=== PATIENT | male | born 1975 | race Caucasian/White ===

== ENCOUNTER 2017-06-23 20:28 | Emergency (ER) | payer BC ==
[~2017-06-23] VITALS: Ht 177.8 cm; Wt 90.4 kg
[~2017-06-23 20:28] MED LIST: CYCL-36 PO; DICL75 PO; SUBO8MIS SL
[2017-06-23 20:33] VITALS: BP 140/66; PULSE 81; RESP 12; TEMP 98.8; O2SAT 100
[2017-06-23] MEDS ORDERED: SODIUM CHLORIDE 0.9% FLUSH 10 ML FLUSH IV FLUSH PRN (21:00)
[2017-06-23] MEDS ORDERED: MORPHINE SULFATE 4 MG/ML INJ IV PUSH ONE (21:00)
[2017-06-23] MEDS ORDERED: ONDANSETRON HCL 4 MG/2 ML VIAL IVP ONE (21:00)
[2017-06-23] MEDS ORDERED: LIPI20TA PO (21:06)
[2017-06-23] MEDS ORDERED: LISI40TA PO (21:06)
[2017-06-23 21:10] VITALS: BP 143/58; PULSE 76; RESP 18; TEMP 98.7; O2SAT 98
--- NOTE | 2017-06-23 21:19 | PD ---
HPI Chief Complaint: Flank/Kidney Pain Time Seen by Provider: 20:44 Travel History International Travel<30 days: No Contact w/Intl Traveler<30days: No Traveled to known affect area: No History of Present Illness HPI 41-year-old male here for evaluation of left flank pain and nausea. The patient apparently was admitted to [facility] 2 days ago and was discharged today. Patient works in construction and apparently was sent home from work 3 days ago because of generalized weakness. The patient went home and slept until the next afternoon. He didn't feel well and presented to [facility] when he was admitted for acute renal failure. The patient reportedly was provided about 12 L of normal saline IV and was discharged today. He does not recall having any imaging performed while he was admitted. He denies urinary symptoms. Left flank pain is dull, radiates to his left lower quadrant, is moderate, is associated with nausea. No history of abdominal surgeries. No illicit drug use. PFSH Past Medical History Diminished Hearing: No Musculoskeletal: Yes (CHRONIC BACK PAIN) Past Surgical History Appendectomy: Yes Social History Alcohol Use: No Tobacco Use: Yes (1.5 PKS PER DAY) Substance Use: No (hx of, currently on Suboxone) Allergies-Medications (Allergen,Severity, Reaction): Coded Allergies: No Known Allergies (Verified , 06/23/17) Reported Meds & Prescriptions Reported Meds & Active Scripts Active Reported Lipitor (Atorvastatin Calcium) 20 Mg Tab 20 Mg PO HS Lisinopril 40 Mg Tab 40 Mg PO DAILY Review of Systems Except as stated in HPI: all other systems reviewed are Neg Physical Exam Narrative GENERAL: Well-developed, well-nourished, no apparent distress. SKIN: Focused skin assessment warm/dry. No rash. HEAD: Atraumatic. Normocephalic. EYES: Pupils equal and round. No scleral icterus. No injection or drainage. ENT: Mucous membranes pink and dry. NECK: Trachea midline. No JVD. CARDIOVASCULAR: Regular rate and rhythm. RESPIRATORY: No accessory muscle use. Clear to auscultation. Breath sounds equal bilaterally. GASTROINTESTINAL: Abdomen soft, non-tender, nondistended. MUSCULOSKELETAL: No obvious deformities. No clubbing. No cyanosis. No edema. Moderate left CVA tenderness. No right CVA tenderness. No midline vertebral step-off or tenderness. NEUROLOGICAL: Awake and alert. No obvious cranial nerve deficits. Motor grossly within normal limits. Normal speech. PSYCHIATRIC: Appropriate mood and affect; insight and judgment normal. Data Data Last Documented VS Vital Signs Date Time Temp Pulse Resp B/P (MAP) Pulse Ox O2 Delivery O2 Flow Rate FiO2 06/23/17 23:03 75 18 124/56 (78) 97 Room Air 06/23/17 21:10 98.7 Orders Orders Complete Blood Count With Diff (06/23/17 20:49) Comprehensive Metabolic Panel (06/23/17 20:49) Urinalysis - C+S If Indicated (06/23/17 20:49) Ct Abd/Pel W/O Iv Contrast (06/23/17 20:49) Iv Access Insert/Monitor (06/23/17 20:49) Ecg Monitoring (06/23/17 20:49) Oximetry (06/23/17 20:49) Morphine Inj (Morphine Inj) (06/23/17 21:00) Ondansetron Inj (Zofran Inj) (06/23/17 21:00) Sodium Chloride 0.9% Flush (Ns Flush) (06/23/17 21:00) Creatine Kinase (Cpk) (06/23/17 20:49) Labs Laboratory Tests Test 06/23/17 21:03 06/23/17 21:41 Urine Color YELLOW Urine Turbidity CLEAR Urine pH 6.0 Urine Specific May 1.005 Urine Protein NEG mg/dL Urine Glucose (UA) 100 mg/dL Urine Ketones NEG mg/dL Urine Occult Blood SMALL Urine Nitrite NEG Urine Bilirubin NEG Urine Leukocyte Esterase NEG Urine Squamous Epithelial Cells 0-5 /hpf Microscopic Urinalysis Comment CULT NOT INDICATED White Blood Count 11.9 TH/MM3 Red Blood Count 4.68 MIL/MM3 Hemoglobin 13.1 GM/DL Hematocrit 38.8 % Mean Corpuscular Volume 83.0 FL Mean Corpuscular Hemoglobin 28.1 PG Mean Corpuscular Hemoglobin Concent 33.8 % Red Cell Distribution Width 13.2 % Platelet Count 234 TH/MM3 Mean Platelet Volume 8.8 FL Neutrophils (%) (Auto) 69.2 % Lymphocytes (%) (Auto) 18.7 % Monocytes (%) (Auto) 6.3 % Eosinophils (%) (Auto) 2.7 % Basophils (%) (Auto) 3.1 % Neutrophils # (Auto) 8.3 TH/MM3 Lymphocytes # (Auto) 2.2 TH/MM3 Monocytes # (Auto) 0.7 TH/MM3 Eosinophils # (Auto) 0.3 TH/MM3 Basophils # (Auto) 0.4 TH/MM3 CBC Comment DIFF FINAL Differential Comment Blood Urea Nitrogen 14 MG/DL Creatinine 0.89 MG/DL Random Glucose 113 MG/DL Total Protein 7.0 GM/DL Albumin 3.6 GM/DL Calcium Level 9.0 MG/DL Alkaline Phosphatase 61 U/L Aspartate Amino Transf (AST/SGOT) 20 U/L Alanine Aminotransferase (ALT/SGPT) 24 U/L Total Bilirubin 0.2 MG/DL Sodium Level 140 MEQ/L Potassium Level 4.2 MEQ/L Chloride Level 106 MEQ/L Carbon Dioxide Level 28.3 MEQ/L Anion Gap 6 MEQ/L Estimat Glomerular Filtration Rate 94 ML/MIN Total Creatine Kinase 145 U/L MDM Medical Decision Making Medical Screen Exam Complete: Yes Emergency Medical Condition: Yes Medical Record Reviewed: Yes Differential Diagnosis Acute renal failure, rhabdomyolysis, nephrolithiasis/ureterolithiasis, UTI, pyelonephritis, urinary obstruction Narrative Course Initial vital signs show heart rate 81, blood pressure 140/66, pulse ox 100% on room air, oral temp of 98.8F. CBC shows WBC 11.9, hemoglobin 13.1, hematocrit 30.8, platelets 234. CMP is unremarkable. Specifically BUN is 14, creatinine is 0.89, GFR is 94. UA shows 100 glucose, small occult blood. CT abdomen pelvis: CONCLUSION: 1. No acute obstructive uropathy. 2. Mildly prominent prostate. 3. Bilateral inguinal hernias containing only fat. Patient was made aware of all findings and was provided a copy of his CT report and all lab results. He is resting comfortably. At this point I believe he is stable for discharge home with outpatient follow-up with a urologist this week. He was told that he had protein in his urine on physical exam a couple months ago and was advised to follow-up with a urologist at that time. He was informed on when to return to the emergency department. He verbalizes understanding and agreement with plan. Diagnosis Primary Impression: Left flank pain Additional Impressions: Microscopic hematuria Glucosuria Referrals: Ronal Vick MD 3 days Urologist Primary Care Physician 3 days Additional Instructions: Follow-up with a primary care physician this week. Follow-up with urologist Dr. Vick or a urologist of your choice this week. Return to the emergency department for worsening symptoms or any other concerns. Disposition: 01 DISCHARGE HOME Condition: Stable Roberto Auguste MD Jun 23, 2017 21:19
--- NOTE | 2017-06-23 21:39 | RADRPT ---
EXAM DATE/TIME: 06/23/2017 21:07 [place] COMPARISON: No previous studies available for comparison. INDICATIONS : Left flank pain. Nausea. ORAL CONTRAST: No oral contrast ingested. RADIATION DOSE: 20.30 CTDIvol (mGy) MEDICAL HISTORY : None SURGICAL HISTORY : Appendectomy. ENCOUNTER: Initial ACUITY: 3 days PAIN SCALE: 7/10 LOCATION: Left flank TECHNIQUE: Volumetric scanning of the abdomen and pelvis was performed. Using automated exposure control and ad justment of the mA and/or kV according to patient size, radiation dose was kept as low as reasonably achievable to obtain optimal diagnostic quality images. DICOM format image data is available electro nically for review and comparison. FINDINGS: LOWER LUNGS: The visualized lower lungs are clear. LIVER: Homogeneous density without lesion. There is no dilation of the biliary tree. No calcified gallston es. SPLEEN: Normal size without lesion. PANCREAS: Within normal limits. KIDNEYS: Normal in size and shape. There is no mass, stone, or hydronephrosis. ADRENAL GLANDS: Within normal limits. VASCULAR: There is no aortic aneurysm. BOWEL/MESENTERY: The stomach, small bowel, and colon demonstrate no acute abnormality. There is no free intraperitone al air or fluid. ABDOMINAL WALL: Within normal limits. RETROPERITONEUM: There is no lymphadenopathy. BLADDER: No wall thickening or mass. REPRODUCTIVE: The prostate is mildly prominent. INGUINAL: There is no lymphadenopathy. Bilateral inguinal hernias containing only fat. MUSCULOSKELETAL: Within normal limits for patient age. There is a sclerotic focus within the right iliac bone consiste nt with probable bone island. CONCLUSION: 1. No acute obstructive uropathy. 2. Mildly prominent prostate. 3. Bilateral inguinal hernias containing only fat. Marcello Brock MD on June 23, 2017 at 21:34 Board Certified Radiologist. This report was verified electronically.
[2017-06-23 21:43] VITALS: RESP 18; O2SAT 97
[2017-06-23 21:49] LABS: AUTOMATED NEUTROPHIL # 8.3 TH/MM3 (1.8-7.7); BASOPHIL # 0.4 TH/MM3 (0-0.2); BASOPHIL % 3.1 % (0.0-2.0); EOSINOPHIL # 0.3 TH/MM3 (0-0.4); EOSINOPHIL % 2.7 % (0.0-4.0); HEMATOCRIT 38.8 % (39.0-51.0); HEMO FLAGS DIFF FINAL; LYMPH % 18.7 % (9.0-44.0); LYMPHOCYTE # 2.2 TH/MM3 (1.0-4.8); MEAN CORPUSCULAR HEMOGLOBIN 28.1 PG (27.0-34.0); MEAN CORPUSCULAR HGB CONC 33.8 % (32.0-36.0); MONO % 6.3 % (0.0-8.0); NEUT % 69.2 % (16.0-70.0); PLATELET COUNT 234 TH/MM3 (150-450); RED BLOOD COUNT 4.68 MIL/MM3 (4.50-5.90); RED CELL DISTRIBUTION WIDTH 13.2 % (11.6-17.2); WHITE BLOOD COUNT 11.9 TH/MM3 (4.0-11.0)
[2017-06-23 21:51] LABS: BLOOD, URINE SMALL (NEG); GLUCOSE,URINE 100 mg/dL (NEG); KETONE, URINE NEG (NEG); NITRITE,URINE NEG (NEG)
[2017-06-23 21:56] LABS: URINE COLOR YELLOW (YELLW/STRAW)
[2017-06-23 21:57] LABS: COMMENT (UR) CULT NOT INDICATED; CULTURE IF INDICATED CULT NOT INDICATED; SQUAMOUS EPITHELIAL CELL URINE 0-5 /hpf (0-5)
[2017-06-23 22:30] LABS: CHLORIDE 106 MEQ/L (98-107); POTASSIUM 4.2 MEQ/L (3.5-5.1); SODIUM (NA) 140 MEQ/L (136-145)
[2017-06-23 22:34] LABS: ANION GAP 6 MEQ/L (5-15); BICARBONATE 28.3 MEQ/L (21.0-32.0); BLOOD UREA NITROGEN 14 MG/DL (7-18)
[2017-06-23 22:37] LABS: ALT (GPT) 24 U/L (12-78); AST (GOT) 20 U/L (15-37); GLOMERULAR FILTRATION RATE 94 ML/MIN (>89)
[2017-06-23 22:38] LABS: TOTAL BILIRUBIN ADULT 0.2 MG/DL (0.2-1.0)
[2017-06-23 22:39] LABS: ALKALINE PHOSPHATASE 61 U/L (45-117); CREATINE KINASE 145 U/L (39-308)
[2017-06-23 23:03] VITALS: BP 124/56; PULSE 75; RESP 18; O2SAT 97
== END 2017-06-23 23:51 | disposition home or self-care (01) ==
LOC: PHED 20:28
DX: R10.9 Unspecified abdominal pain (principal); R31.29 Other microscopic hematuria; R81 Glycosuria; R53.1 Weakness; F17.200 Nicotine dependence, unspecified, uncomplicated
CPT/HCPCS: 74176; 80053; 81001; 82550; 85025; 96374; 96375; 99285; J2270; J2405